=== PATIENT | male | born 1940 | race Caucasian/White ===

== ENCOUNTER 2022-04-22 10:31 | Outpatient (CLI) | payer MEDICARE, BC ==
[2022-04-22 11:42] LABS: Hemoglobin 17.4 g/dL (13.5-17.5)
[2022-04-22 12:45] LABS: Anion Gap 20 mmol/L (10-20); BUN (Urea Nitrogen) 19 mg/dL (8.4-25.7); Calc. Creatinine Clearance 0 mL/min (70-130); Calcium 9.5 mg/dL (7.8-10.44); Carbon Dioxide 20 mmol/L (23-31); Chloride 106 mmol/L (98-107); Glucose 243 mg/dL (83-110); Potassium 4.6 mmol/L (3.5-5.1); Sodium 141 mmol/L (136-145)
== END 2022-04-22 10:32 | disposition home or self-care (01) ==
LOC: CSHLAB 10:31
PROVIDERS: ATTEND Otolaryngology Plastic Surgery within the Head & Neck
DX: Z01.818 Encounter for other preprocedural examination (principal); Z20.822 Contact with and (suspected) exposure to COVID-19; H61.23 Impacted cerumen, bilateral; H90.A21 Sensorineural hearing loss, unilateral, right ear, with restricted hearing on the contralateral side
CPT/HCPCS: 80048; 85014; 85018; 93005; 93010; U0003; U0005

== ENCOUNTER 2022-04-25 05:53 | Day surgery (SDC) | payer MEDICARE, BC ==
[2022-04-23 10:24] VITALS: BMI 32.2
[2022-04-25] MEDS ORDERED: Lidocaine 1% w/Epinephrine 1:100K 20 ML VIAL ONE (06:37)
[2022-04-25] MEDS ORDERED: Mupirocin 2% Ointment 22 GM Tube ONE (06:38)
[2022-04-25] MEDS ORDERED: Methylene Blue 50 MG/10 ML AMPUL ONE (06:38)
[2022-04-25] MEDS ORDERED: Lidocaine 4% Topical Sol 50 ML BOT ONE (06:39)
[2022-04-25] MEDS ORDERED: Lidocaine 1% MPF 2 ML VIAL ONE (06:40)
[2022-04-25] MEDS ORDERED: PROPOFOL 20 ML ONE ×2 (06:43→06:45)
[2022-04-25] MEDS ORDERED: Fentanyl 250 MCG/5 ML VIAL ONE (06:43)
[2022-04-25] MEDS ORDERED: Midazolam HCl 2 mg/2 ml Vial ONE (06:43)
[2022-04-25] MEDS ORDERED: Ondansetron PF 4 MG/2 ML Vial ONE (06:43)
[2022-04-25] MEDS ORDERED: Rocuronium Bromide 10 MG/ML (10ML VIAL) ONE (06:43)
[2022-04-25] MEDS ORDERED: Lidocaine 1% PF 5 ML VIAL ONE (06:43)
[2022-04-25] MEDS ORDERED: Dexamethasone 20 MG/5 ML VIAL ONE (06:43)
[2022-04-25] MEDS ORDERED: EPINEPHrine 1 MG/ML AMP ONE (06:58)
[2022-04-25] MEDS ORDERED: PHENYLEPHRINE-NS 100 MCG/ML 10 ML SYRINGE ONE (07:08)
[2022-04-25] MEDS ORDERED: ePHEDrine Sulfate 50 MG/10 ML VIAL ONE (07:09)
[2022-04-25] MEDS ORDERED: ceFAZolin 2 GM/Dextrose 50 ML IVPB ONE (07:32)
[2022-04-25] MEDS ORDERED: Meperidine HCl/PF 25 MG/ML VIAL ONE (11:06)
== END 2022-04-25 13:03 | disposition home or self-care (01) ==
LOC: CSHSDC 05:53
PROVIDERS: ATTEND Otolaryngology Plastic Surgery within the Head & Neck
PROC: 09HD05Z Insertion of Single Channel Cochlear Prosthesis into Right Inner Ear, Open Approach (ICD-10-PCS; principal; 2022-04-25)
DX: H90.A21 Sensorineural hearing loss, unilateral, right ear, with restricted hearing on the contralateral side (principal); H61.23 Impacted cerumen, bilateral; H83.8X1 Other specified diseases of right inner ear; E11.9 Type 2 diabetes mellitus without complications; Z79.84 Long term (current) use of oral hypoglycemic drugs; Z79.899 Other long term (current) drug therapy
CPT/HCPCS: 69930; 70250; 82962; C1713; L8614 ×2; Q9968; 36416; J0171; J0690; J1100; J2175; J2250; J2405; J2704; J3010